=== PATIENT | male | born 1970 | race Two or more races ===

== ENCOUNTER 2019-12-31 10:09 | Emergency (ER) | payer MEDICAID, OTHER ==
[~2019-12-31] VITALS: Ht 167.6 cm; Wt 59.0 kg
--- NOTE | 2019-12-31 10:28 | NUR ---
Note brittanie in EDM - 12/31/19 at 1058 by RAQUEL ED Nurse Note: PT ambulated to ed c/o left inguinal hernia for 3month pt reports having a surgery done around the of this month. pt states he has pain 12/22
--- NOTE | 2019-12-31 10:28 | NUR ---
ED Nurse Note: Pt ambulated to ed c/o left inguinal hernia for 3 months. Pt reports that he is scheduled to have a surgery doneon the of this month. Pt states he has pain 8/10. Has history of hernias in the past; 2 episodes.
[2019-12-31 10:30] VITALS: BP 142/88
[2019-12-31] MEDS ORDERED: fentaNYL 100 mcg/2 mL IV ONE (10:30)
--- NOTE | 2019-12-31 10:40 | NUR ---
ED Nurse Note: Pt taken to CT on wheel chair.
--- NOTE | 2019-12-31 10:48 | NUR ---
ED Nurse Note: Pt returned from CT
--- NOTE | 2019-12-31 10:48 | NUR ---
ED Nurse Note: Pt states that he is unable to provide a urine sample at this time. pt given urinal bottle and offered water. pt refused to drink water.
--- NOTE | 2019-12-31 10:53 | Emergency Room Report ---
History of Present Illness General Chief Complaint: Abdominal Pain Source: Patient Present Illness HPI Patient is a 49-year-old male prior history of 2 hernia repairs awaiting left inguinal hernia repair who presents to the ER complaining of left inguinal hernia pain for 1 week. He denies any difficulty urinating or constipation. He denies any fever or chills. He denies any nausea or vomiting. He states that he has not taken anything for the pain. Allergies: Coded Allergies: No Known Allergies (Unverified , 12/31/19) COVID-19 Screening Contact w/high risk pt: No Experienced COVID-19 symptoms?: No COVID-19 Testing performed ELECTRONIC SERVICE TECHNICIAN: No Patient History Reviewed Nursing Documentation: PMH: Agreed; PSxH: Agreed Nursing Documentation-PMH Past Medical History: No History, Except For Review of Systems All Other Systems: negative except mentioned in HPI Physical Exam Vital Signs Date Time Temp Pulse Resp B/P (MAP) Pulse Ox O2 Delivery O2 Flow Rate FiO2 12/31/19 10:20 98.4 81 15 142/88 (106) 99 Room Air Sp02 EP Interpretation: reviewed, normal General Appearance: alert, GCS 15, non-toxic, mild distress Head: normocephalic, atraumatic Eyes: bilateral eye normal inspection, bilateral eye PERRL ENT: hearing grossly normal, normal pharynx, no angioedema, normal voice Neck: full range of motion, supple/symm/no masses Respiratory: chest non-tender, lungs clear, normal breath sounds, speaking full sentences Cardiovascular #1: regular rate, rhythm, no edema Gastrointestinal: normal bowel sounds, non tender, soft, non-distended, no guarding, no rebound Rectal: deferred Genitourinary: other - Left inguinal hernia soft reducible non-erythematous tender to palpation chaperoned by EMT Vincent Musculoskeletal: normal range of motion 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 Labs demonstrate no elevated white blood cell count and lactate is normal. CT demonstrates fat-containing inguinal hernia. No evidence for strangulation. Hernia is easily reducible. Patient given abdominal binder. And copy of his CT results. He will follow-up with a surgeon as an outpatient. After discussing risks and benefits of further diagnostics, treatment plans, as well as indications for and risks of admission , the patient is agreeable to being discharged home. I have explained that their evaluation and treatment in the emergency department today is an important step towards them achieving better health but that their evaluation today is not intended to replace further evaluation and treatment by a physician in their local clinic. I have explained that while the current findings suggest no immediate life threatening emergency they will require further evaluation and treatment by a physician of their choice in their area. They understand that it will be necessary for them to review the final reports of their ED visit with their clinic physician. We have reviewed indications for return to the Emergency Department. I have explained that additional time may need to pass and/or additional testing as an outpatient may be necessary before a definitive diagnosis can be made. They tell me they are willing to follow up as instructed within the timeframe I recommend. They appear to understand what we discussed. Additionally they understand that if they are unable to be seen by an outpatient physician they are welcome, and in fact should, return to the Emergency Department for a repeat evaluation. The patient is stable at time of discharge. Laboratory Tests Test 12/31/19 10:36 12/31/19 11:10 White Blood Count 9.3 K/UL (4.8-10.8) Red Blood Count 5.22 M/UL (4.70-6.10) Hemoglobin 15.3 G/DL (14.2-18.0) Hematocrit 47.1 % (42.0-52.0) Mean Corpuscular Volume 90 FL (80-99) Mean Corpuscular Hemoglobin 29.3 PG (27.0-31.0) Mean Corpuscular Hemoglobin Concent 32.5 G/DL (32.0-36.0) Red Cell Distribution Width 11.9 % (11.6-14.8) Platelet Count 393 K/UL (150-450) Mean Platelet Volume 6.0 FL (6.5-10.1) L Neutrophils (%) (Auto) 76.9 % (45.0-75.0) H Lymphocytes (%) (Auto) 15.0 % (20.0-45.0) L Monocytes (%) (Auto) 4.9 % (1.0-10.0) Eosinophils (%) (Auto) 1.5 % (0.0-3.0) Basophils (%) (Auto) 1.6 % (0.0-2.0) Sodium Level 139 MMOL/L (136-145) Potassium Level 4.0 MMOL/L (3.5-5.1) Chloride Level 105 MMOL/L (98-107) Carbon Dioxide Level 29 MMOL/L (21-32) Anion Gap 5 mmol/L (5-15) Blood Urea Nitrogen 16 mg/dL (7-18) Creatinine 0.9 MG/DL (0.55-1.30) Estimated Glomerular Filtration Rate > 60 mL/min (>60) Glucose Level 99 MG/DL (74-106) Lactic Acid Level 0.80 mmol/L (0.4-2.0) Calcium Level 8.8 MG/DL (8.5-10.1) Magnesium Level 2.3 MG/DL (1.8-2.4) Total Bilirubin 0.2 MG/DL (0.2-1.0) Aspartate Amino Transferase (AST) 10 U/L (15-37) L Alanine Aminotransferase (ALT) 21 U/L (12-78) Alkaline Phosphatase 101 U/L (46-116) Total Protein 7.6 G/DL (6.4-8.2) Albumin 3.6 G/DL (3.4-5.0) Globulin 4.0 g/dL Albumin/Globulin Ratio 0.9 (1.0-2.7) L Lipase 166 U/L (73-393) Urine Color Pale yellow Urine Appearance Clear Urine pH 5 (4.5-8.0) Urine Specific [place] 1.020 (1.005-1.035) Urine Protein 1+ (NEGATIVE) H Urine Glucose (UA) Negative (NEGATIVE) Urine Ketones Negative (NEGATIVE) Urine Blood Negative (NEGATIVE) Urine Nitrite Negative (NEGATIVE) Urine Bilirubin Negative (NEGATIVE) Urine Urobilinogen Normal MG/DL (0.0-1.0) Urine Leukocyte Esterase Negative (NEGATIVE) Urine RBC Pending Urine WBC Pending Urine Squamous Epithelial Cells Pending Urine Bacteria Pending Urine Opiates Screen Negative (NEGATIVE) Urine Barbiturates Screen Negative (NEGATIVE) Phencyclidine (PCP) Screen Negative (NEGATIVE) Urine Amphetamines Screen Positive (NEGATIVE) H Urine Benzodiazepines Screen Negative (NEGATIVE) Urine Cocaine Screen Negative (NEGATIVE) Urine Marijuana (THC) Screen Negative (NEGATIVE) Last Vital Signs Date Time Temp Pulse Resp B/P (MAP) Pulse Ox O2 Delivery O2 Flow Rate FiO2 12/31/19 10:30 98.4 81 15 142/88 99 Room Air Disposition: HOME, SELF-CARE Condition: Stable Scripts Hydrocodone Bit/Acetaminophen 5-325* (NORCO 5-325 TABLET*) 1 Each Tablet 1 TAB ORAL Q6H PRN for FOR PAIN, #12 TAB 0 Refills Prov: Charlette Domínguez M.D. 12/31/19 Additional Instructions: The patient was provided with discharge instructions, notified to follow-up with a primary care doctor and or specialist in the next 24-48 hours, and to return to the ED if they have worsening of their symptoms. Please note that this report is being documented using [employer] technology. This can lead to erroneous entry secondary to incorrect interpretation by the dictating instrument. Charlette Domínguez M.D. Dec 31, 2019 10:53
[2019-12-31 10:59] LABS: ANION GAP 5 mmol/L (5-15); BLOOD UREA NITROGEN 16 mg/dL (7-18); CALCIUM 8.8 MG/DL (8.5-10.1); CARBON DIOXIDE 29 MMOL/L (21-32); CHLORIDE 105 MMOL/L (98-107); CREATININE 0.9 MG/DL (0.55-1.30); SODIUM 139 MMOL/L (136-145)
[2019-12-31 11:00] LABS: BASOPHILS % (AUTO) 1.6 % (0.0-2.0); EOSINOPHILS % (AUTO) 1.5 % (0.0-3.0); HEMATOCRIT 47.1 % (42.0-52.0); HEMOGLOBIN 15.3 G/DL (14.2-18.0); MEAN CORPUSCULAR VOLUME 90 FL (80-99); MONOCYTES % (AUTO) 4.9 % (1.0-10.0); NEUTROPHILS % (AUTO) 76.9 % (45.0-75.0); PLATELET COUNT 393 K/UL (150-450); RED BLOOD COUNT 5.22 M/UL (4.70-6.10); RED CELL DISTRIBUTION WIDTH 11.9 % (11.6-14.8); WHITE BLOOD COUNT 9.3 K/UL (4.8-10.8)
[2019-12-31 11:08] LABS: ALANINE AMINOTRANSFERASE 21 U/L (12-78); ALBUMIN 3.6 G/DL (3.4-5.0); ALBUMIN/GLOBULIN RATIO 0.9 (1.0-2.7); ALKALINE PHOSPHATASE 101 U/L (46-116); ASPARTATE AMINO TRANSFERASE 10 U/L (15-37); BILIRUBIN,TOTAL 0.2 MG/DL (0.2-1.0)
[2019-12-31 11:26] LABS: APPEARANCE,URINE CLEAR; BILIRUBIN, URINE NEGATIVE (NEGATIVE); COLOR,URINE PALE YELLOW; GLUCOSE, URINE (UA) NEGATIVE (NEGATIVE); KETONES,URINE NEGATIVE (NEGATIVE); LEUKOCYTE ESTERASE ,URINE NEGATIVE (NEGATIVE); NITRITE,URINE NEGATIVE (NEGATIVE); PH,URINE 5 (4.5-8.0); PROTEIN,URINE 1+ (NEGATIVE); UROBILINOGEN,URINE NORMAL MG/DL (0.0-1.0)
--- NOTE | 2019-12-31 11:39 | NUR ---
ED Nurse Note: PT IV site removed. pt went to waiting room stating " I need to get money from friend "
--- NOTE | 2019-12-31 11:42 | NUR ---
ED Nurse Note: Pt returned to room, pt reports zero pain. vss.
--- NOTE | 2019-12-31 11:42 | Diagnostic Imaging Report ---
CT ABDOMEN AND PELVIS WITHOUT CONTRAST INDICATION: None available TECHNIQUE: Continuous helical transaxial imaging of the abdomen and pelvis was obtained from the lung bases to the pubic symphysis. Coronal 2-D reformats were also obtained. Study obtained in a Siemens sensation [address] Automatic Exposure Control was utilized. Total Dose length Product (DLP): 223.[address] Dose Index Volume (CTDIvol): 3.9 mGy COMPARISON: None FINDINGS: Lower chest:: Unremarkable. Hepatobiliary:: Unremarkable. Genitourinary:: Bilateral nephrolithiasis without hydronephrosis.There is eventration of the right anterior wall of the bladder approaching the inguinal canal. Prostate is mildly enlarged and coarsely calcified. Adrenals:: Unremarkable. Pancreas:: Unremarkable. Gastrointestinal:: No evidence of obstruction. Appendix is normal. Scattered colonic diverticulosis without evidence of acute diverticulitis. Spleen: : Unremarkable. Peritoneum:: No free air or free fluid. Moderate fat-containing left inguinal hernia. Bones and soft tissues:: There are multilevel discogenic degenerative changes of the visualized spine. IMPRESSION: 1. Nonobstructing bilateral nephrolithiasis. 2. Moderate fat-containing left inguinal hernia. 3. Eventration of the right anterolateral bladder wall to the level of the inguinal canal, without definite herniation. The CT scanner at [facility] is accredited by the [employer] and the scans are performed using protocols designed to limit radiation exposure to as low as reasonably achievable to attain images of sufficient resolution adequate for diagnostic evaluation
[2019-12-31] MEDS ORDERED: NORCO 5-325 TA1 EAC1 ORAL (11:45)
[2019-12-31 11:50] VITALS: BP 135/79
--- NOTE | 2019-12-31 11:50 | NUR ---
ER DISCHARGE NOTE: Patient is cleared to be discharged per ERMD, pt is aox4, on room air, with stable vital signs. pt was given dc and prescription instructions, pt was able to verbalize understanding, pt id band and iv site removed without complications. pt is able to ambulate with steady gait. pt took all belongings.
== END 2019-12-31 11:50 | disposition home or self-care (01) ==
LOC: EMR 10:25
DX: K40.90 Unilateral inguinal hernia, without obstruction or gangrene, not specified as recurrent (principal); F15.10 Other stimulant abuse, uncomplicated
CPT/HCPCS: 36415; 74176; 80053; 80307; 81003; 83605; 83690; 83735; 85025; 96361; 96374; J3010; J7030; Z7502; 99284

== ENCOUNTER 2020-01-08 06:54 | Emergency (ER) | payer MEDICAID ==
[~2020-01-08] VITALS: Ht 167.6 cm; Wt 65.8 kg
[~2020-01-08 06:54] MED LIST: NORCO 5-325 TA1 EAC1 ORAL
[2020-01-08 07:06] VITALS: BP 149/99
[2020-01-08] MEDS ORDERED: COLACE100 MG ORAL (07:19)
--- NOTE | 2020-01-08 07:19 | Emergency Room Report ---
History of Present Illness General Chief Complaint: Pain Source: Patient Present Illness HPI Patient is a 49-year-old male who presents after increase symptoms from his left inguinal hernia. Reports having some increase in size of the hernia over the past few weeks. States he recently was evicted from his living situation. He had not been having any vomiting. Reports having some pain to the left inguinal area. Prior history of hernia repair in the past. Had CT imaging approximate 1 week ago at this facility. He had previously been authorized for surgery. Denies any vomiting or diarrhea. Patient is requesting a sandwich. Allergies: Coded Allergies: No Known Allergies (Unverified , 12/31/19) COVID-19 Screening Contact w/high risk pt: No Experienced COVID-19 symptoms?: No COVID-19 Testing performed DAIRY HELPER: No Patient History Past Medical History: see triage record Reviewed Nursing Documentation: PMH: Agreed; PSxH: Agreed Nursing Documentation-PMH Hx Cardiac Problems: Yes - hernia Review of Systems All Other Systems: negative except mentioned in HPI Physical Exam Vital Signs Date Time Temp Pulse Resp B/P (MAP) Pulse Ox O2 Delivery O2 Flow Rate FiO2 01/08/20 06:56 97.0 69 20 149/99 (116) 98 Room Air General Appearance: well appearing, no apparent distress, alert, GCS 15 Head: normocephalic, atraumatic ENT: hearing grossly normal, normal voice Neck: full range of motion, supple Respiratory: normal inspection, no respiratory distress, no accessory muscle use, speaking full sentences Cardiovascular #1: normal inspection Gastrointestinal: normal inspection, soft, other - Left inguinal hernia easily reducible. Very small hernia sac. 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 Differential diagnosis include was not limited to incarcerated hernia, bowel obstruction, testicular torsion, among others. Patient's testicles have normal lie. Pain is located near where inguinal hernia is present. Hernia appears to be very easily reducible and is freely mobile. Patient does not appear to have any evidence of strangulation incarceration or any acute problems with hernia at this time. He does have prior history of surgical referral. Patient was advised to follow-up with the surgeon he was previously referred to for elective repair. He was advised to return for persistent vomiting severe pain, fever or other concerns. This medical record is generated with [employer] teleradiologist software. There may be some teleradiologist discrepancies related to use of this software Last Vital Signs Date Time Temp Pulse Resp B/P (MAP) Pulse Ox O2 Delivery O2 Flow Rate FiO2 01/08/20 06:56 97.0 69 20 149/99 (116) 98 Room Air Status: improved Disposition: HOME, SELF-CARE Condition: Stable Francois Velez MD Jan 08, 2020 07:19
[2020-01-08] MEDS ORDERED: [UNRECOGNIZED DRUG - SUPPLY] (07:27)
[2020-01-08 07:36] VITALS: BP 138/90
== END 2020-01-08 07:35 | disposition home or self-care (01) ==
LOC: EMR 07:18
DX: K40.90 Unilateral inguinal hernia, without obstruction or gangrene, not specified as recurrent (principal)
CPT/HCPCS: 99281

== ENCOUNTER 2020-01-21 02:43 | Emergency (ER) | payer MEDICAID, OTHER ==
[~2020-01-21] VITALS: Ht 162.6 cm; Wt 63.5 kg
[~2020-01-21 02:43] MED LIST changes: +COLACE100 MG ORAL; +[UNRECOGNIZED DRUG - SUPPLY]
--- NOTE | 2020-01-21 02:58 | NUR ---
ED Nurse Note: Patient walked in for c/o LLQ pain, per pt, possible hernia. pt has hx of hernias. Patient aao x 4 and ambulatory. Patient reports aching pain on LLQ 6/10. Patient denies nausea, vomiting, or diarrhea. Patient changed into gown. No acute distress noted during assessment.
[2020-01-21 03:00] VITALS: BP 132/79
[2020-01-21 03:39] VITALS: BP 138/85
--- NOTE | 2020-01-21 03:39 | NUR ---
ER DISCHARGE NOTE: Patient is cleared to be discharged per ERMD, pt is aox4 and ambulatory, on room air, with stable vital signs. pt left without signing discharge paperwork. pt id band removed. pt discharged in stable condition, no acute distress noted during departure.
--- NOTE | 2020-01-21 03:43 | Emergency Room Report ---
History of Present Illness General Chief Complaint: Abdominal Pain Source: Patient Present Illness [facility] This a 49-year-old male with a history of inguinal hernia. He presents with chief complaint of hernia pain. Is been there for several days but got bigger he said. Minimal pain. No fever chills but no nausea no vomiting. He said he was scared to push it back in. Similar symptom in the past. He was just here recently. Allergies: Coded Allergies: No Known Allergies (Unverified , 12/31/19) COVID-19 Screening Contact w/high risk pt: No Experienced COVID-19 symptoms?: No COVID-19 Testing performed POTATO CHIP MAKER: No Patient History Past Medical History: see triage record, old chart reviewed Past Surgical History: other Pertinent Family History: none Social History: Reports: alcohol use Immunizations: other Reviewed Nursing Documentation: PMH: Agreed; PSxH: Agreed Nursing Documentation-PMH Hx Cardiac Problems: Yes - hernia Review of Systems Eye: Denies: eye pain, blurred vision ENT: Denies: ear pain, nose congestion, throat swelling Respiratory: Denies: cough, shortness of breath Cardiovascular: Denies: chest pain, palpitations Gastrointestinal: Denies: abdominal pain, diarrhea, nausea, vomiting Musculoskeletal: Denies: back pain, joint pain Skin: Denies: rash Neurological: Denies: headache, numbness Endocrine: Denies: increased thirst, increased urine Hematologic/Lymphatic: Denies: easy bruising All Other Systems: negative except mentioned in HPI Physical Exam Vital Signs Date Time Temp Pulse Resp B/P (MAP) Pulse Ox O2 Delivery O2 Flow Rate FiO2 01/21/20 02:51 98.6 100 16 137/95 (109) 98 Room Air Vitals normal Sp02 EP Interpretation: reviewed, normal General Appearance: well appearing, no apparent distress, alert Head: normocephalic, atraumatic Eyes: bilateral eye PERRL, bilateral eye EOMI ENT: hearing grossly normal, normal pharynx Neck: full range of motion, supple, no meningismus Respiratory: chest non-tender, lungs clear, normal breath sounds Cardiovascular #1: regular rate, rhythm, no murmur Gastrointestinal: normal bowel sounds, non tender, no mass, no organomegaly, no bruit, non-distended, other - Left inguinal hernia. Easily reducible. Nontender. Musculoskeletal: back normal, normal range of motion, gait/station normal Psychiatric: mood/affect normal Medical Decision Making Diagnostic Impression: Primary Impression: Inguinal hernia Qualified Codes: K40.91 - Unilateral inguinal hernia, without obstruction or gangrene, recurrent Additional Impression: Methamphetamine abuse ER Course Patient here for inguinal hernia. No evidence of incarceration. No evidence of strangulation. Will discharge home. Patient left before I printed out discharge paperwork. Last Vital Signs Date Time Temp Pulse Resp B/P (MAP) Pulse Ox O2 Delivery O2 Flow Rate FiO2 01/21/20 03:00 95 16 Room Air 01/21/20 03:00 98.6 132/79 99 Status: improved Disposition: HOME, SELF-CARE Condition: Stable Referrals: [facility],REFERRING (PCP) Maged Harrington MD Jan 21, 2020 03:42
== END 2020-01-21 03:39 | disposition home or self-care (01) ==
LOC: EMR 03:09
DX: K40.91 Unilateral inguinal hernia, without obstruction or gangrene, recurrent (principal); F15.10 Other stimulant abuse, uncomplicated
CPT/HCPCS: 99281